=== PATIENT | male | born 1995 | race Caucasian/White ===

== ENCOUNTER 2017-03-31 17:07 | Emergency (ER) | payer OTHER ==
[2017-03-31 17:14] VITALS: BP 141/67
[2017-03-31] MEDS ORDERED: Tetan/Diph/Pertus SYR(Tdap)* 0.5 ML SYR(BOOSTRIX) use SYR IM ONE (17:33)
[2017-03-31] MEDS ORDERED: Lidocaine 2% PF * 5 ML VIAL INJ ONE (17:33)
--- NOTE | 2017-03-31 18:16 | UC ---
Lower Extremity/Ankle HPI - HPI Summary HPI Summary: 1.5 MONTHS OF LEFT GREAT TOE SWELLING, DRAINAGE, REDNESS. NO FEVER. NO KNOWN TRAUMA. TRIMS TOENAILS TIGHT TO AVOID IRRITATION WITH WORK BOOTS. - History of Current Complaint Chief Complaint: UCLowerExtremity Stated Complaint: TOE SWELLING,INFLAMED Time Seen by Provider: 03/31/17 17:22 Hx Obtained From: Patient Onset/Duration: Gradual Onset, Lasting Weeks, Still Present Severity Initially: Moderate Severity Currently: Moderate Aggravating Factor(s): Standing, Ambulation Alleviating Factor(s): Rest Able to Bear Weight: Yes - Risk Factors Gout Risk Factors: Negative DVT Risk Factors: Negative Septic Arthritis Risk Factor: Negative - Allergies/Home Medications Allergies/Adverse Reactions: Allergies Allergy/AdvReac Type Severity Reaction Status Date / Time No Known Allergies Allergy Verified 03/31/17 17:14 Home Medications: Home Medications Omeprazole [Prilosec] 20 mg PO 03/31/17 [History] PMH/Surg Hx/FS Hx/Imm Hx Previously Healthy: Yes - Surgical History Surgical History: Yes Surgery Procedure, Year, and Place: t&a - Family History Known Family History: Negative: Diabetes - Social History Occupation: Employed Full-time Lives: With Family Alcohol Use: Rare Substance Use Type: None Smoking Status (MU): Former Smoker Review of Systems Constitutional: Negative Skin: Other - LEFT GREAT TOENAIL, LATERAL CUTICLE, ERYTHEMA, TENDERNESS, DRAINAGE Eyes: Negative ENT: Negative Respiratory: Negative Cardiovascular: Negative Gastrointestinal: Negative Genitourinary: Negative Motor: Negative Neurovascular: Negative Musculoskeletal: Myalgia Neurological: Negative Psychological: Negative All Other Systems Reviewed And Are Negative: Yes Physical Exam Triage Information Reviewed: Yes Appearance: Well-Appearing, No Pain Distress, Well-Nourished Vital Signs: Initial Vital Signs Temp 99.2 F 03/31/17 17:11 Pulse 96 03/31/17 17:11 Resp 18 03/31/17 17:11 BP 141/67 03/31/17 17:11 Pulse Ox 99 03/31/17 17:11 Vital Signs Reviewed: Yes Eye Exam: Normal ENT Exam: Normal Dental Exam: Normal Neck exam: Normal Neck: Positive: Supple, Nontender Respiratory Exam: Normal Respiratory: Positive: Chest non-tender, Lungs clear, Normal breath sounds, No respiratory distress, No accessory muscle use Cardiovascular Exam: Normal Cardiovascular: Positive: RRR, No Murmur, Pulses Normal Abdominal Exam: Normal Musculoskeletal Exam: Normal Musculoskeletal: Positive: Strength Intact, ROM Intact Neurological Exam: Normal Psychological Exam: Normal Psychological: Positive: Normal Response To Family Skin: Positive: Other - LEFT GREAT TOENAIL, LATERAL CUTICLE, ERYTHEMA, TENDERNESS, DRAINAGE Procedures - Procedure Summary Procedure Summary: LEFT GREAT TOENAIL, LATERAL CUTICLE, ERYTHEMA, TENDERNESS, DRAINAGE, PARTIAL TONAIL REMOVAL AT SITE OF INGROWN NAIL. DIGITAL BLOCK USING 2% LIDOCAINE, BLUNT DISSECTIVE REMOVAL OF NAIL PORTION USING SMOOTH FORCEPS AND SURGICAL SCISSORS. PATIENT TOLERATED PROCEDURE WELL. Lower Extremity Course/Dx - Differential Dx/Diagnosis Differential Diagnosis/HQI/PQRI: Cellulitis, Foreign Body, Fracture (Closed), Gout, Infection, Sprain, Strain Provider Diagnoses: INGROWN LEFT GREAT TOENAIL WITH PARTIAL REMOVAL OF LATERAL NAIL. Discharge - Discharge Plan Condition: Stable Disposition: HOME Prescriptions: Amoxicillin/Clavulanate TAB* [Augmentin TAB 875*] 875 mg PO BID #20 tab Patient Education Materials: Ingrown Nail (ED), Nail Removal (ED) Forms: *Work Release Referrals: Justin Castro DPM [Doctor of Podiatric Medicine] - If Needed Images Feet (Multiple View): 1 - LEFT GREAT TOENAIL, LATERAL CUTICLE, ERYTHEMA, TENDERNESS, DRAINAGE
--- NOTE | 2017-04-02 19:33 | ED ---
Progress - Progress Note Progress Note: CALL PATIENT . MSRA (-). CONTINUE ABX. Course/Dx - Diagnoses Provider Diagnoses: Wound cellulitis
--- NOTE | 2017-04-04 07:29 | ED ---
Progress - Progress Note Progress Note: CALL PATIENT . MSRA (-). CONTINUE ABX. 04/04/17 7:25am Staph with resistance to PCN, sensitive to Ampicillin, cefazolin please call and check wound progess will change abx if indicated -[place] Course/Dx - Diagnoses Provider Diagnoses: Wound cellulitis
== END 2017-03-31 18:18 | disposition home or self-care (01) ==
LOC: UCEAST 17:07
DX: L60.0 Ingrowing nail (principal); L03.032 Cellulitis of left toe; Z23 Encounter for immunization; Z87.891 Personal history of nicotine dependence
CPT/HCPCS: 11730; 11765; 87070; 87077; 87186; 87205; 87640; 87641; 90471; 90715; 99202; G0463